=== PATIENT | female | born 1990 | race Caucasian/White ===

== ENCOUNTER 2017-01-11 07:49 | Inpatient (IN) | payer OTHER ==
[2017-01-11] VITALS (20 sets, daily range): BP systolic 113–159; BP diastolic 58–96
[~2017-01-11] VITALS: Ht 157.5 cm; Wt 92.7 kg
[2017-01-11] MEDS ORDERED: PRENATAL TABLE1 EAC3 PO (08:21)
[2017-01-11] MEDS ORDERED: GLYBURIDE2.5 MG PO ×2 (08:22)
[2017-01-11 10:53] LABS: POINT-OF-CARE METER ID UU13113801; POINT-OF-CARE USER ID RADDNY
[2017-01-11 11:24] LABS: EOSINOPHIL (%) 0.8 % (0-5); EOSINOPHIL COUNT 0.1 K/uL (0-0.3); HEMATOCRIT 37.6 % (36.0-46.0); IMMATURE GRANULOCYTE (%) 0.4 % (0.0-0.7); INSTRUMENT ABS NEUTROPHIL CT 5.1 K/uL; LYMPHOCYTE COUNT 1.3 K/uL (1.0-2.8); MCH 27.3 PG (29.0-34.0); MCV 82.6 FL (83-99); MEAN PLAT.VOLUME 12.1 uM^3 (9.5-12.4); MONOCYTE (%) 7.8 % (3-12); MONOCYTE COUNT 0.6 K/uL (0-0.8); NEUTROPHIL (%) 72.7 % (45-76); NEUTROPHIL COUNT 5.1 K/uL (1.8-6.4); PLATELET COUNT 208 K/uL (156-360); RBC DIS.WIDTH-CV 14.4 % (11.8-14.6); RBC DIS.WIDTH-SD 42.6 % (39-53); RED BLOOD COUNT 4.55 M/uL (3.80-5.20); WHITE BLOOD COUNT 7.1 K/uL (4.1-10.2)
[2017-01-11 15:22] LABS: POINT-OF-CARE METER ID UU13113692; POINT-OF-CARE USER ID RADDNY
[2017-01-11 15:22] LABS: POINT-OF-CARE METER ID UU13113692; POINT-OF-CARE USER ID RADDNY
[2017-01-11 18:18] LABS: POINT-OF-CARE METER ID UU13113801; POINT-OF-CARE USER ID RADDNY
[2017-01-11 20:16] LABS: POINT-OF-CARE METER ID UU13113801
[2017-01-12 00:37] VITALS: BP 138/76
[2017-01-12 00:39] VITALS: BP 128/70
[2017-01-12 01:49] VITALS: BP 122/74
[2017-01-12 07:14] LABS: EOSINOPHIL (%) 0 % (0-5); IMMATURE GRANULOCYTE (%) 0.5 % (0.0-0.7); IMMATURE GRANULOCYTE COUNT 0.1 K/uL; INSTRUMENT ABS NEUTROPHIL CT 15.4 K/uL; LYMPHOCYTE COUNT 1.3 K/uL (1.0-2.8); MCH 27.9 PG (29.0-34.0); MCHC 34.1 G/DL (30.0-36.0); MCV 81.7 FL (83-99); MEAN PLAT.VOLUME 12.5 uM^3 (9.5-12.4); MONOCYTE (%) 7.7 % (3-12); MONOCYTE COUNT 1.4 K/uL (0-0.8); NEUTROPHIL (%) 84.7 % (45-76); NEUTROPHIL COUNT 15.4 K/uL (1.8-6.4); PLATELET COUNT 212 K/uL (156-360); RBC DIS.WIDTH-CV 14.6 % (11.8-14.6); RBC DIS.WIDTH-SD 42.5 % (39-53); RED BLOOD COUNT 4.16 M/uL (3.80-5.20); WHITE BLOOD COUNT 18.2 K/uL (4.1-10.2)
[2017-01-12 08:03] VITALS: BP 123/80
[2017-01-12 15:57] VITALS: BP 112/74
[2017-01-12 22:36] VITALS: BP 129/76
[2017-01-13 07:51] VITALS: BP 128/64
[2017-01-13] MEDS ORDERED: IBUPROFEN800 MG PO (11:14)
== END 2017-01-13 14:30 | disposition home or self-care (01) | DRG 775 ==
LOC: LDRP-OP → 2WEST 07:50 → LDRP-OP 07:53 → 2WEST 22:45 → LDRP-OP 02-13 10:07
PROVIDERS: Advanced Practice Midwife; Obstetrics & Gynecology
DX: O70.0 First degree perineal laceration during delivery (principal); Z3A.39 39 weeks gestation of pregnancy; Z37.0 Single live birth; O76 Abnormality in fetal heart rate and rhythm complicating labor and delivery; E66.9 Obesity, unspecified; O99.214 Obesity complicating childbirth; Z68.30 Body mass index [BMI] 30.0-30.9, adult; O24.420 Gestational diabetes mellitus in childbirth, diet controlled
CPT/HCPCS: 82948; 85025; J0595; J7120